=== PATIENT | male | born 1965 | race Caucasian/White ===

== ENCOUNTER 2024-04-03 14:41 | Emergency (ER) | payer OTHER ==
[~2024-04-03] VITALS: Ht 165.1 cm; Wt 99.8 kg
[2024-04-03 14:46] VITALS: BP 126/79; PULSE 64; RESP 20; TEMP 98.2; O2SAT 96
[2024-04-03] MEDS: LIDOCAINE 2% 1000 MG/50 ML VIAL INJ ONE (15:41)
[2024-04-03 17:54] VITALS: BP 124/72; PULSE 78; RESP 16; TEMP 98.2; O2SAT 99
== END 2024-04-03 17:54 | disposition home or self-care (01) ==
LOC: MED 14:41
DX: S01.81XA Laceration without foreign body of other part of head, initial encounter (principal); F10.129 Alcohol abuse with intoxication, unspecified; V87.8XXA Person injured in other specified noncollision transport accidents involving motor vehicle (traffic), initial encounter; Y93.89 Activity, other specified; Y92.89 Other specified places as the place of occurrence of the external cause; Y99.8 Other external cause status
CPT/HCPCS: 12011; 70450; 99284; J2001